=== PATIENT | female | born 1955 | race African-American/Black ===

== ENCOUNTER → 2017-08-26 | Outpatient (CLI) | payer MEDICARE, MEDICAID ==
--- NOTE | 2017-08-26 10:10 | RADIOLOGY REPORT (SQ) ---
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 Images stored on PACS. Additional thin section sagittal and coronal T2, sagittal and coronal T1 pre and postcontrast images obtained through the pituitary fossa. CONTRAST TYPE AND DOSE: 10 mL Multihance. RENAL FUNCTION: GFR > 60. LIMITATIONS: None. FINDINGS: PITUITARY: Along the superior aspect of the anterior lobe pituitary, a peripheral rim enha ncing lesion is present bright on T2, intermediate signal on T1 precontrast, without significant enha ncement post contrast. This likely represents a pituitary cyst or adenoma. This measures 10 mm cran iocaudad by 8.4 mm AP x 9 mm transverse. This lesion sits between the optic nerves in the suprasella r cistern, mildly displacing the left optic nerve laterally, best shown on coronal thin section T2 im ages 3 through 7. No significant flattening of the left optic nerve. No cavernous sinus extension. Overall, the pituitary gland measures 13 mm craniocaudad by 13.5 mm AP x 14 mm transverse. Posterior pituitary bright spot is identified. Infundibulum midline. Adjacent cavernous sinuses are unremark able. CSF SPACES: Normal in size and contour. No hemorrhage. CEREBRUM: Sulci and gyri normal in size and contour. Normal white matter signal on FLAIR imaging. No evidence of hemorrhage, mass, or extraaxial fluid collection. No abnormal enhancement post contrast. POSTERIOR FOSSA: No signal alteration. No hemorrhage. No edema, masses, or mass effect. Internal elizabeth tory canals, cerebellopontine angles, mastoids normal. No enhancing lesions. No abnormal enhancement post contrast. DIFFUSION IMAGING: Negative for acute or subacute infarction. ORBITS: No masses. Globes normal. PARANASAL SINUSES: No fluid levels. Mucosa normal. OTHER: No other significant finding. IMPRESSION: Minimal growth or change in pituitary cyst versus macroadenoma compared to 2010 EVIDENCE OF ACUTE STROKE: NO. TECHNICAL DOCUMENTATION: JOB ID: [id number] [employer]- All Rights Reserved
== END ==
LOC: RAD 08:12
PROVIDERS: ATTEND Family Medicine
DX: D35.2 Benign neoplasm of pituitary gland (principal)
CPT/HCPCS: 82565; 70553; A9577